=== PATIENT | female | born 1985 | race Caucasian/White ===

== ENCOUNTER 2017-05-10 06:00 | Inpatient (IN) | payer BC, OTHER ==
[2017-05-10] MEDS ORDERED: LIDOCAINE 1% (PF) 10 MG/ML (30 ML SDV) SQ PRN (06:42)
[2017-05-10] MEDS ORDERED: OXYTOCIN 10 UNIT/ML 1 ML VIAL IM PRN (06:42)
[2017-05-10] MEDS ORDERED: METHYLERGONOVINE 0.2 MG/ML 1 ML AMP IM PRN (06:42)
[2017-05-10] MEDS ORDERED: CARBOPROST TROMETHAMINE 250 MCG/ML 1 ML AMP IM PRN (06:42)
[2017-05-10] MEDS ORDERED: TERBUTALINE 1 MG/ML VIAL SQ PRN (06:42)
[2017-05-10] MEDS ORDERED: OXYTOCIN 20 UNITS/1000 ML NS 1,000 ML IV SCH (06:45)
[2017-05-10 06:49] VITALS: BMI 29.2
[2017-05-10] MEDS: LACTATED RINGERS 1,000 ML IV SCH ×3 (07:03→12:46)
[2017-05-10 07:12] LABS: Basophils % (A) 1 %; Eosinophils # (A) 0.2 k/uL (0-0.7); Eosinophils % (A) 2 %; HCT 37.8 % (34.0-46.0); HGB 13.2 gm/dL (11.4-16.0); Luc # (Auto) 0.19; Luc % (Auto) 2; Lymphocytes # (A) 2.4 k/uL (1.0-4.8); Lymphocytes % (A) 28 %; MCH 32.1 pg (25.0-35.0); MCHC 34.9 g/dL (31.0-37.0); MCV 92.1 fL (80.0-100.0); Monocytes # (A) 0.5 k/uL (0-1.0); Monocytes % (A) 6 %; Neutrophils # (A) 5.2 k/uL (1.3-7.7); Neutrophils % (A) 61 %; RBC 4.11 m/uL (3.80-5.40); RDW 13.4 % (11.5-15.5); WBC 8.5 k/uL (3.8-10.6); WBC (Perox) 9.11
--- NOTE | 2017-05-10 07:18 | P.HPOB ---
History of Present Illness H&P Date: 05/10/17 This is a 32-year-old white female 2 para 1001 EDC 05/15/2017 at 39-2/7 weeks' gestation. Patient presents for elective induction for favorable multiparous cervix and increasing maternal discomfort. Fetus is been active throughout the . She denies vaginal bleeding or fluid leakage. Past surgical history is significant for tonsillectomy and adenoidectomy, right breast benign biopsy, EGD, wisdom teeth extracted, and right wrist surgery at age 11. Current medications Tums as needed, vitamins daily. Past medical history is significant for benign breast mass, excised surgically. ALLERGIES include cephalosporins to which reports a rash and seasonal ALLERGIES. Family history is significant for skin cancer in her mother, shingles in her brother, lymphoma in her mother, hypertension and lipidemia, breast cancer in her mother. Reproductive history is significant for 8 lbs. 8 oz. vaginal delivery in 2014. Social history patient is , she is a nonsmoker, she denies alcohol or drug use with . history group B strep cultures are negative. Blood type O positive. Rubella status immune. VDRL testing, urine culture, hepatitis B surface antigen , HIV testing all negative. One-hour Glucola 80. On exam this is a pleasant white female, she is 5 foot 9-1/2 inches, 198 pounds , blood pressure 133/63 on admission, vital signs are stable and she is afebrile. The general physical exam is within normal limits. The chest is clear in all moreira. The extremities reveal no edema. The cervix is 3 cm dilated, anterior, soft, 60-70% effaced, -2 station, vertex presentation. Artificial amniorrhexis reveals clear fluid. heart rate is in the 140s with frequent accelerations, consistent with reactive NST. Uterine contractions are occurring spontaneously approximately every 3 minutes apart of mild intensity. Impression: 39-2/7 weeks intrauterine , here for elective induction, in early spontaneous labor. Plan: Oxytocin per hospital protocol. Close maternal and surveillance. Anticipate normal spontaneous vaginal delivery. Review of Systems Negative except as in HPI. Past Medical History Past Medical History: No Reported History History of Any Multi-Drug Resistant Organisms: None Reported Past Surgical History: Adenoidectomy, Tonsillectomy Additional Past Surgical History / Comment(s): EGD Past Anesthesia/Blood Transfusion Reactions: No Reported Reaction Past Psychological History: No Psychological Hx Reported Smoking Status: Never smoker Past Alcohol Use History: Occasional Past Drug Use History: None Reported - Past Family History Mother Family Medical History: Cancer, Thyroid Disorder Medications and Allergies Home Medications Medication Instructions Recorded Confirmed Type Pnv 117/Iron/Folic/Om3/Dha/Epa 1 tab PO DAILY 02/02/15 05/10/17 History [Duet Dha Balanced (25 mg Iron)] Allergies Allergy/AdvReac Type Severity Reaction Status Date / Time Cephalosporins Allergy Rash/Hives Verified 05/10/17 06:40 Exam - Vital Signs Vital signs: Vital Signs Temp Pulse Resp BP 05/10/17 06:44 98.2 F 88 16 133/63 Intake and Output 05/09/17 05/10/17 05/10/17 22:59 06:59 14:59 Other: Weight 89.811 kg See dictation under HPI. Assessment and Plan Plan: Oxytocin per hospital protocol. Analgesic options have been reviewed with the patient. Continue close maternal and surveillance. Anticipate normal spontaneous vaginal delivery. Time with Patient: Less than 30
[2017-05-10] MEDS ORDERED: fentaNYL (PF) 50 MCG/ML 5 ML AMP ONE (10:52)
[2017-05-10] MEDS ORDERED: BUPIVACAINE (PF) 0.25% 30 ML VIAL ONE (10:52)
[2017-05-10] MEDS ORDERED: SODIUM CHLORIDE 0.9% 100 ML BAG ONE (10:52)
[2017-05-10] MEDS ORDERED: BUPIVACAINE (PF) 0.25% 25 ML, fentaNYL (PF) 200 MCG in SODIUM CHLORIDE 0.9% 71 ML EPIDURAL ONE (11:26)
[2017-05-10] MEDS ORDERED: BENZOCAINE/MENTHOL SPRAY 1 GM/SPRAY AEROSOL TOPICAL PRN (13:46)
[2017-05-10] MEDS ORDERED: ACETAMINOPHEN TAB 325 MG TAB PO PRN (13:46)
[2017-05-10] MEDS ORDERED: LANOLIN CREAM 5 GM TUBE TOPICAL PRN (13:46)
[2017-05-10] MEDS ORDERED: SIMETHICONE 80 MG CHEWABLE PO PRN (13:46)
[2017-05-10] MEDS ORDERED: WITCH HAZEL 1 EACH MED..PAD TOPICAL PRN (13:46)
[2017-05-10] MEDS ORDERED: diphenhydrAMINE ELIXIR 25 MG/10 ML CUP PO PRN (13:46)
[2017-05-10] MEDS ORDERED: diphenhydrAMINE 50 MG/ML 1 ML VIAL IVP PRN ×2 (13:46)
[2017-05-10] MEDS ORDERED: diphenhydrAMINE 50 MG CAP PO PRN (13:46)
[2017-05-10] MEDS ORDERED: ZOLPIDEM 5 MG TAB PO PRN (13:46)
[2017-05-10] MEDS ORDERED: Acetaminophen-Codeine 300-30mg TAB PO PRN (13:46)
[2017-05-10] MEDS ORDERED: diphenhydrAMINE 25 MG CAP PO PRN (13:46)
[2017-05-10] MEDS ORDERED: HYDROCORTISONE 2.5% RECTAL CREAM 30 GM TUBE RECTAL PRN (13:46)
--- NOTE | 2017-05-10 13:46 | P.PROBDLV ---
Vaginal Delivery Note - . Vaginal Delivery Note: This is a 32-year-old white female 2 para 1001 EDC 05/15/2017 at 39-2/7 weeks' gestation. Patient presented for induction with favorable multiparous cervix. is unremarkable. Please see dictated history and physical for details. Patient requested an epidural and this was placed without difficulty. heart tones were reassuring throughout the first and second stages of labor. Toward the end of the first stage variable decelerations were noted, and therefore the patient was checked and noted to be complete. The perineal body was prepped and draped therefore in the usual sterile fashion. Infant's head delivered in the occiput anterior position and he restituted accordingly. There was a tight nuchal cord noted. Upon my attempt to reduce the cord, patient had a strong expulsive effort and the cord broke spontaneously. Infant delivered immediately thereafter, official time of delivery 1305 hrs. Umbilical cord was clamped at the umbilicus. The uterus was massaged. The placenta delivered spontaneously, it was inspected and noted to be intact at 13 007 hours. At this time the perineal body was redraped. Inspection of the cervix, vagina, perineum and periurethral areas revealed no lacerations. Infant weighed 3475 g or 7 lbs. 11 oz. All sponge needle and enhancement counts are correct at the end of the procedure. Patient and her family are allowed to begin the bonding experience in the LDR.
[2017-05-10] MEDS: SENNOSIDES-DOCUSATE SODIUM 1 EACH TAB PO SCH (19:50)
[2017-05-10] MEDS: IBUPROFEN 600 MG TAB PO PRN (19:50)
--- NOTE | 2017-05-11 07:14 | P.DS ---
Providers Date of admission: 05/10/17 06:16 Expected date of discharge: 05/11/17 Attending physician: Susan Zee Primary care physician: Stated None Hospital Course: This is a 32-year-old white female 2 para 1001 EDC 05/15/2017 at 39-2/7 weeks' gestation. Patient presented for induction with favorable multiparous cervix. was unremarkable, group B strep cultures negative, rubella status immune, blood type O positive. Please see my dictated history and physical for details. Patient was admitted, artificial amniorrhexis revealed clear fluid. Oxytocin was started and titrated per protocol. Epidural was placed per her request. She went on to swiftly deliver a liveborn male with scores of 8 and 9 at one and 5 minutes respectively. There was a nuchal cord on the perineal body and an estimated blood loss of 300 mL's. Infant weighed 7 lbs. 11 oz. or 3475 g. Please see my dictated delivery note for details. No perineal lacerations or defects were appreciated. This morning the patient is doing well. She is voiding, ambulating and passing flatus without difficulty. Vital signs are stable and she is afebrile. Fundus is firm and in the midline, symmetric and 18 week size. Extremities are negative for edema. Breast-feeding is going well. Circumcision has been performed. Patient has no problems or complaints. She is being discharged home later today in very good condition. She will follow-up in the office with me in 6 weeks. I have reminded her no intercourse , tampons or douching. She will use [id number] ibuprofen products as needed for pain, I bupropion 200 mg, 3 pills every 6 hours as needed. She will continue taking her vitamin daily. I've asked her to call me with any fevers shakes or chills, foul smelling or copious lochia, with the passage of large blood clots, with any pain not alleviated by [id number] products, or indeed with any concerns. We have briefly reviewed contraceptive options and we will discuss this further in the office in 6 weeks. Patient Condition at Discharge: Good Plan - Discharge Summary New Discharge Prescriptions: No Action Pnv 117/Iron/Folic/Om3/Dha/Epa [Duet Dha Balanced (25 mg Iron)] 1 tab PO DAILY Discharge Medication List Pnv 117/Iron/Folic/Om3/Dha/Epa [Duet Dha Balanced (25 mg Iron)] 1 tab PO DAILY 02/02/15 [History] Follow up Appointment(s)/Referral(s): Susan Zee MD [STAFF PHYSICIAN] - 6 Weeks Discharge Disposition: HOME SELF-CARE
[2017-05-11] MEDS: IBUPROFEN 600 MG TAB PO PRN ×2 (07:59→13:47)
[2017-05-11 08:12] VITALS: BP 121/67; PULSE 77; RESP 18; TEMP 98
[2017-05-11] MEDS: SENNOSIDES-DOCUSATE SODIUM 1 EACH TAB PO SCH (08:14)
== END 2017-05-11 14:24 | disposition home or self-care (01) | DRG 775 ==
LOC: 4FBP 06:16
PROVIDERS: ADMIT Obstetrics & Gynecology; ATTEND Obstetrics & Gynecology
PROC: 10E0XZZ Delivery of Products of Conception, External Approach (ICD-10-PCS; principal; 2017-05-10)
PROC: 3E033VJ Introduction of Other Hormone into Peripheral Vein, Percutaneous Approach (ICD-10-PCS; 2017-05-10)
PROC: 10907ZC Drainage of Amniotic Fluid, Therapeutic from Products of Conception, Via Natural or Artificial Opening (ICD-10-PCS; 2017-05-10)
PROC: 00HU33Z Insertion of Infusion Device into Spinal Canal, Percutaneous Approach (ICD-10-PCS; 2017-05-10)
PROC: 3E0R3CZ (ICD-10-PCS; 2017-05-10)
DX: O69.1XX0 Labor and delivery complicated by cord around neck, with compression, not applicable or unspecified (principal); O76 Abnormality in fetal heart rate and rhythm complicating labor and delivery; Z3A.39 39 weeks gestation of pregnancy; Z37.0 Single live birth; Z88.1 Allergy status to other antibiotic agents; Z79.899 Other long term (current) drug therapy
CPT/HCPCS: 85025; 88307

== ENCOUNTER → 2019-07-23 | Outpatient (CLI) | payer BC | END | disposition home or self-care (01) | LOC: LABWHC1 10:09 | PROVIDERS: ATTEND Obstetrics & Gynecology | DX: O20.0 Threatened abortion (principal) | CPT/HCPCS: 36415; 84702; 86850; 86900; 86901 ==

== ENCOUNTER → 2019-07-25 | Outpatient (CLI) | payer BC | END | disposition home or self-care (01) | LOC: LABWHC1 09:38 | PROVIDERS: ATTEND Obstetrics & Gynecology | DX: O20.0 Threatened abortion (principal) | CPT/HCPCS: 36415; 84702 ==

== ENCOUNTER 2020-03-13 03:05 | Inpatient (IN) | payer BC ==
[2020-03-13] MEDS ORDERED: TERBUTALINE 1 MG/ML VIAL SQ PRN (03:59)
[2020-03-13] MEDS ORDERED: LIDOCAINE 0.5% (PF) 5 MG/ML (50 ML SDV) SQ PRN (03:59)
[2020-03-13] MEDS ORDERED: METHYLERGONOVINE 0.2 MG/ML 1 ML AMP IM PRN (03:59)
[2020-03-13] MEDS ORDERED: CARBOPROST TROMETHAMINE 250 MCG/ML 1 ML AMP IM PRN (03:59)
[2020-03-13] MEDS ORDERED: OXYTOCIN 10 UNIT/ML 1 ML VIAL IM PRN (03:59)
[2020-03-13] MEDS ORDERED: OXYTOCIN 30 UNITS/500 ML NS 30 UNIT in SALINE 1 500ML.BAG IV SCH (04:00)
[2020-03-13 04:15] VITALS: RESP 16
[2020-03-13 04:24] LABS: Basophils % (A) 1 %; Eosinophils # (A) 0.2 k/uL (0-0.7); Eosinophils % (A) 2 %; HCT 35.9 % (34.0-46.0); HGB 12.3 gm/dL (11.4-16.0); Lymphocytes # (A) 2.3 k/uL (1.0-4.8); Lymphocytes % (A) 32 %; MCH 31.4 pg (25.0-35.0); MCHC 34.4 g/dL (31.0-37.0); MCV 91.3 fL (80.0-100.0); Mean Platelet Volume 9.8; Monocytes # (A) 0.5 k/uL (0-1.0); Monocytes % (A) 7 %; Neutrophils % (A) 57 %; Platelet Count 181 k/uL (150-450); RBC 3.93 m/uL (3.80-5.40); RDW 12.9 % (11.5-15.5)
[2020-03-13] MEDS: LACTATED RINGERS 1,000 ML IV SCH ×2 (04:25→08:01)
[2020-03-13] MEDS ORDERED: ROPIVACAINE 5MG/ML 20ML VIAL ONE (07:29)
[2020-03-13] MEDS ORDERED: fentaNYL (PF) 50 MCG/ML 5 ML AMP ONE (07:29)
[2020-03-13] MEDS ORDERED: SODIUM CHLORIDE 0.9% 100 ML BAG ONE (07:29)
[2020-03-13] MEDS ORDERED: diphenhydrAMINE 25 MG CAP PO PRN (11:51)
[2020-03-13] MEDS ORDERED: diphenhydrAMINE 50 MG/ML 1 ML VIAL IVP PRN ×2 (11:51)
[2020-03-13] MEDS ORDERED: HYDROcodone/APAP 5-325MG 1 EACH TAB PO PRN (11:51)
[2020-03-13] MEDS ORDERED: LANOLIN CREAM 5 GM TUBE TOPICAL PRN (11:51)
[2020-03-13] MEDS ORDERED: HYDROcodone/APAP 7.5-325MG 1 EACH TAB PO PRN (11:51)
[2020-03-13] MEDS ORDERED: ACETAMINOPHEN TAB 325 MG TAB PO PRN (11:51)
[2020-03-13] MEDS ORDERED: HYDROCORTISONE 2.5% RECTAL CREAM 30 GM TUBE RECTAL PRN (11:51)
[2020-03-13] MEDS ORDERED: diphenhydrAMINE 50 MG CAP PO PRN (11:51)
[2020-03-13] MEDS ORDERED: SIMETHICONE 80 MG CHEWABLE PO PRN (11:51)
[2020-03-13] MEDS ORDERED: ZOLPIDEM 5 MG TAB PO PRN (11:51)
[2020-03-13] MEDS ORDERED: BENZOCAINE/MENTHOL SPRAY 1 GM/SPRAY AEROSOL TOPICAL PRN (11:51)
--- NOTE | 2020-03-13 11:57 | P.HPOB ---
History of Present Illness H&P Date: 03/13/20 Chief Complaint: 38-6/7 weeks, spontaneous rupture of membranes, labor The patient is a 35-year-old 3 para 2001 admitted at 38-6/7 weeks as established by last menstrual period and confirmed by second trimester ultrasound. She is admitted with documented spontaneous rupture of membranes in early labor with all signs reassuring. Her has been uncomplicated and group B strep status is negative. She was noted at her anatomy ultrasound with a finding of bilateral full renal pelves. This was to be followed up with pediatrics. Obstetrical history: 3 para 2001 with 2 term vaginal deliveries without complications. Current statistics are listed in history present illness. EDC of 03/21/2020 was established by last menstrual period and confirmed by second trimester ultrasound. Laboratory workup done traits of bloo d type of O+ with a negative antibody screen. Rubella status is immune. The remainder of the laboratory workup was within normal limits. One hour Glucola was normal and group B strep status is negative. Gynecologic history: Unremarkable with no history of any infections to include STDs. Review of Systems Review of systems is confined to history of present illness. Past Medical History Past Medical History: No Reported History History of Any Multi-Drug Resistant Organisms: None Reported Past Surgical History: Adenoidectomy, Tonsillectomy Additional Past Surgical History / Comment(s): EGD Past Anesthesia/Blood Transfusion Reactions: No Reported Reaction Past Psychological History: No Psychological Hx Reported Smoking Status: Never smoker Past Alcohol Use History: Occasional Past Drug Use History: None Reported - Past Family History Mother Family Medical History: Cancer, Thyroid Disorder Medications and Allergies Home Medications Medication Instructions Recorded Confirmed Type Pnv 117/Iron/Folic/Om3/Dha/Epa 1 tab PO DAILY 02/02/15 03/13/20 History [Duet Dha Balanced (25 mg Iron)] Allergies Allergy/AdvReac Type Severity Reaction Status Date / Time Cephalosporins Allergy Rash/Hives Verified 05/10/17 06:40 Exam Vital Signs Temp Pulse Resp BP Pulse Ox 03/13/20 03:59 97.6 F 72 16 126/77 03/13/20 03:45 96.3 F L 78 16 127/77 97 Intake and Output 03/12/20 03/13/20 03/13/20 22:59 06:59 14:59 Other: # Voids 4 Weight 93.894 kg In general, this is a well-developed, well-nourished white female in no acute distress. Her heart has a regular rhythm and rate without murmur. Her lungs are clear to auscultation. Her abdomen is gravid, nondistended, has normal active bowel sounds, soft, nontender, and without any palpable masses aside from uterine fundus. Her extremities are without any cyanosis, clubbing, or edema and are nontender to palpation bilaterally. Digital cervical examination at the time of my arrival demonstrated her sugars to 3 cm dilated, 50% effaced, the vertex in presentation at -1 station. Spontaneous rupture of membranes has been documented. Results Result Diagrams: 03/13/20 04:00 Assessment and Plan (1) Spontaneous rupture of amniotic membranes Current Visit: Yes Status: Acute Code(s): [id number] - SNOMED Code(s): 936362298 (2) Active labor at term Current Visit: Yes Status: Acute Code(s): [id number] - SNOMED Code(s): 358 88307 Plan: The patient has been admitted for active management of labor. As contractions were still fairly spaced out despite rupture of membranes, Pitocin augmentation was added early this morning. She has requested and received an epidural catheter for analgesia. She'll have close maternal surveillance and expectant management will be practiced.
--- NOTE | 2020-03-13 11:59 | P.PROBDLV ---
Vaginal Delivery Note - . Vaginal Delivery Note: The patient is a 35-year-old 3 para 2001 admitted at 38-6/7 weeks by good dating parameters. She is admitted with documented spontaneous rupture of members in early labor with all signs reassuring. Her has been entirely uncomplicated though the fetus was found to have bilateral full renal pelves consistent with a finding on a male fetus. This was to be followed up after delivery. On labor and delivery, she had Pitocin augmentation started and underwent an epidural catheter placement for analgesia. She made rapid progress through the active phase of labor to complete and then pushed over the course of 1 contraction to a normal spontaneous vaginal delivery of a viable 8 lbs. 5 oz. baby boy with Apgars of 8 at 1 minute and 9 at 5 minutes delivered in the right occiput anterior position. The placenta was delivered spontaneously, intact, a nd grossly normal with a grossly normal, centrally inserted three-vessel cord. There were no lacerations of the perineum, vagina, or cervix. Estimated blood loss for the case was approximately 150 mL. There were no complications. All sponge, instrument, and needle counts were correct. Both mother and are resting comfortably in recovery.
[2020-03-13] MEDS ORDERED: OXYTOCIN 20 UNITS/1000 ML NS 1,000 ML IV SCH (12:00)
[2020-03-13] MEDS ORDERED: ONDANSETRON 4 MG/2 ML VIAL IVP STA (12:15)
[2020-03-13] MEDS: IBUPROFEN 600 MG TAB PO PRN (17:43)
[2020-03-13] MEDS: SENNOSIDES-DOCUSATE SODIUM 1 EACH TAB PO SCH (19:41)
[2020-03-14] MEDS: IBUPROFEN 600 MG TAB PO PRN ×3 (00:25→15:18)
[2020-03-14] MEDS: SENNOSIDES-DOCUSATE SODIUM 1 EACH TAB PO SCH (09:16)
--- NOTE | 2020-03-14 10:44 | P.DS ---
Providers Date of admission: 03/13/20 03:28 Expected date of discharge: 03/14/20 Attending physician: Susan Zee Primary care physician: Stated None - Discharge Diagnosis(es) (1) Spontaneous rupture of amniotic membranes Current Visit: Yes Status: Acute (2) Active labor at term Current Visit: Yes Status: Acute (3) Normal spontaneous vaginal delivery Current Visit: Yes Status: Acute Hospital Course: The patient is a 35-year-old 3 para 2 scissors or 2 admitted at 38-6/7 weeks by good dating parameters. She is admitted with spontaneous rupture of membranes in early labor with all signs reassuring. She has had an uncomplicated and group B strep status is negative. On labor and delivery, she had Pitocin augmentation started and progressed quickly through the active phase of labor to complete. She then pushed rapidly to a normal spontaneous vaginal delivery of a viable 8 lbs. 5 oz. baby boy with Apgars of 8 at 1 minute and 9 at 5 units. Her course was unremarkable with vital signs being stable and her temperature was afebrile throughout. She was deemed stable for discharge on day #1 and was discharged home to follow-up in the office in 6 weeks' time routinely. Discharge instructions included calling for any significantly increased bleeding or foul-smelling lochia, significantly increased fever abdominal pain, perineal complaints, breast complaints, or anything else that concerned her. She was additionally instructed to have nothing in vagina for at least 6 weeks time to include intercourse. She understood her instructions and agrees to follow up as noted above. Discharge medications included continued vitamins as she has opted to breast-feed. She was otherwise to use [id number] analgesic pain medications as needed. Maternal blood type is O+ and rubella status is immune. Procedures: #1. Epidural analgesia #2. Pitocin augmentation #3. Normal spontaneous vaginal delivery Patient Condition at Discharge: Good Plan - Discharge Summary New Discharge Prescriptions: No Action Pnv 117/Iron/Folic/Om3/Dha/Epa [Duet Dha Balanced (25 mg Iron)] 1 tab PO DAILY Discharge Medication List Pnv 117/Iron/Folic/Om3/Dha/Epa [Duet Dha Balanced (25 mg Iron)] 1 tab PO DAILY 02/02/15 [History] Follow up Appointment(s)/Referral(s): Susan Zee MD [STAFF PHYSICIAN] - 6 Weeks Discharge Disposition: HOME SELF-CARE
[2020-03-14 15:58] VITALS: BP 136/68; PULSE 65; TEMP 97.8
== END 2020-03-14 20:00 | disposition home or self-care (01) | DRG 807 ==
LOC: FBPOP 03:05 → 4FBP 03:28
PROVIDERS: ADMIT Obstetrics & Gynecology; ATTEND Obstetrics & Gynecology
PROC: 10E0XZZ Delivery of Products of Conception, External Approach (ICD-10-PCS; principal; 2020-03-13)
PROC: 3E0R3BZ Introduction of Anesthetic Agent into Spinal Canal, Percutaneous Approach (ICD-10-PCS; principal; 2020-03-13)
PROC: 00HU33Z Insertion of Infusion Device into Spinal Canal, Percutaneous Approach (ICD-10-PCS; principal; 2020-03-13)
DX: O80 Encounter for full-term uncomplicated delivery (principal); Z37.0 Single live birth; Z3A.38 38 weeks gestation of pregnancy; Z80.9 Family history of malignant neoplasm, unspecified; Z83.49 Family history of other endocrine, nutritional and metabolic diseases; Z88.1 Allergy status to other antibiotic agents
CPT/HCPCS: 59025; 84112; 85025; 86850; 86900; 86901; 99213

== ENCOUNTER 2023-12-12 08:16 | Emergency (ER) | payer BC ==
[2023-12-12 09:06] VITALS: TEMP 98.8
[2023-12-12] MEDS: KETOROLAC 15 MG/ML 1 ML VIAL IVP STA (09:17)
[2023-12-12] MEDS: SODIUM CHLORIDE 0.9% 1,000 ML IV ONE (09:17)
[2023-12-12] MEDS: diphenhydrAMINE 50 MG/ML 1 ML VIAL IVP STA (09:18)
[2023-12-12] MEDS: methylPREDNISolone SOD SUCCI 125 MG/2 ML VIAL IV STA (09:19)
--- NOTE | 2023-12-12 09:25 | ED ---
General Adult HPI - General Chief complaint: Allergic Reaction Stated complaint: allergic reaction,joint pain Time Seen by Provider: 12/12/23 08:36 Source: patient, RN notes reviewed Mode of arrival: ambulatory Limitations: no limitations - History of Present Illness Initial comments: 38-year-old female presents emergency department chief complaint of swelling, joint pain, recent illness. Patient states that she started having congestion, was not feeling well was seen in urgent care and was diagnosed with throat infection, ear infection and sinus issues and was placed on Augmentin and steroids. She states soon she finished the steroid she started having swelling of her hands, joint space and started developing worsening discomfort. Patient was seen again in urgent care was given Toradol and was told that they could do a steroid again but they were not sure what was going on. Patient states seemed to worsen this morning in which she presented to the emergency department. Patient denies any difficulty swallowing or breathing she has no history of arthritic or autoimmune issues. - Related Data Previous Rx's Medication Instructions Recorded predniSONE 50 mg PO DAILY #4 tab 12/12/23 Allergies Allergy/AdvReac Type Severity Reaction Status Date / Time Cephalosporins Allergy Rash/Hives Verified 12/12/23 09:05 Review of Systems ROS Statement: Those systems with pertinent positive or pertinent negative responses have been documented in the HPI. ROS Other: All systems not noted in ROS Statement are negative. Past Medical History Past Medical History: No Reported History History of Any Multi-Drug Resistant Organisms: None Reported Past Surgical History: Adenoidectomy, Tonsillectomy Additional Past Surgical History / Comment(s): EGD Past Anesthesia/Blood Transfusion Reactions: No Reported Reaction Past Psychological History: No Psychological Hx Reported Smoking Status: Never smoker Past Alcohol Use History: Occasional Past Drug Use History: None Reported - Past Family History Mother Family Medical History: Cancer, Thyroid Disorder General Exam Limitations: no limitations General appearance: alert, in no apparent distress Head exam: Present: atraumatic, normocephalic, normal inspection Eye exam: Present: normal appearance, PERRL, EOMI, periorbital swelling. A bsent: scleral icterus, conjunctival injection ENT exam: Present: normal exam, normal oropharynx, mucous membranes moist Neck exam: Present: normal inspection, full ROM. Absent: tenderness, meningismus, lymphadenopathy Respiratory exam: Present: normal lung sounds bilaterally. Absent: respiratory distress, wheezes, rales, rhonchi, stridor Cardiovascular Exam: Present: regular rate, normal rhythm, normal heart sounds. Absent: systolic murmur, diastolic murmur, rubs, gallop, clicks GI/Abdominal exam: Present: soft, normal bowel sounds. Absent: distended, tenderness, guarding, rebound, rigid Extremities exam: Absent: pedal edema Neurological exam: Present: alert Skin exam: Present: warm, dry, intact, normal color. Absent: rash Course Vital Signs 12/12/23 12/12/23 12/12/23 08:25 09:30 09:43 Temperature 98.8 F Pulse Rate 98 89 Respiratory 18 18 18 Rate Blood Pressure 147/81 O2 Sat by Pulse 99 Oximetry 12/12/23 11:35 Temperature Pulse Rate 77 Respiratory 12 Rate Blood Pressure 122/85 O2 Sat by Pulse Oximetry Medical Decision Making - Medical Decision Making Was pt. sent in by a medical professional or institution (, PA, MACHINE DESIGN CHECKER, urgent care, hospital, or assisted...) When possible be specific @ -No Did you speak to anyone other than the patient for history (EMS, parent, family, police, friend...)? What history was obtained from this source @ -No Did you review nursing and triage notes (agree or disagree)? Why? @ -I reviewed and agree with nursing and triage notes Were old charts reviewed (outside hosp., previous admission, EMS record, old EKG, old radiological studies, urgent care reports/EKG's, assisted records)? Report findings @ -No old charts were reviewed Differential Diagnosis (chest pain, altered mental status, abdominal pain women, abdominal pain men, vaginal bleeding, weakness, fever, dyspnea, syncope, headache, dizziness, GI bleed, back pain, seizure, CVA, palpatations, mental health, musculoskeletal)? @ -[Allergic reaction, drug reaction COVID 19, RSV, influenza, pneumonia, acute bronchitis, URI, this list is not all inclusive EKG interpreted by me (3pts min.). @ -None X-rays interpreted by me (1pt min.). @ -None done CT interpreted by me (1pt min.). @ -None done U/S interpreted by me (1pt. min.). @ -None done What testing was considered but not performed or refused? (CT, X-rays, U/S, labs)? Why? @ -None What meds were considered but not given or refused? Why? @ -None Did you discuss the management of the patient with other professionals (professionals i.e. , PA, MACHINE DESIGN CHECKER, lab, RT, psych nurse, social insurance administrator, paraprofessional education assistant, teacher, chief science officer, transplant case manager)? Give summary @ -No Was smoking cessation discussed for >3mins.? @ -No Was critical care preformed (if so, how long)? @ -No Were there social determinants of health that impacted care today? How? (Homelessness, low income, unemployed, alcoholism, drug addiction, transportation, low edu. Level, literacy, decrease access to med. care, [facility], rehab)? @ -No Was there de-escalation of care discussed even if they declined (Discuss DNR or withdrawal of care, Hospice)? DNR status @ -No What co-morbidities impacted this encounter? (DM, HTN, Smoking, COPD, CAD, Cancer, CVA, ARF, Chemo, Hep., AIDS, mental health diagnosis, sleep apnea, morbid obesity)? @ -None Was patient admitted / discharged? Hospital course, mention meds given and route, prescriptions, significant lab abnormalities, going to OR and other pertinent info. @ -[This charge patient is improved after Solu-Medrol, Benadryl laboratory studies unremarkable. I do feel this is related to possible drug mediated reaction from viral illness. Patient discharged in stable condition will discontinue Augmentin Undiagnosed new problem with uncertain prognosis? @ -No Drug Therapy requiring intensive monitoring for toxicity (Heparin, Nitro, Insulin, Cardizem)? @ -No Were any procedures done? @ -No Diagnosis/symptom? @ -Viral illness, drug reaction Acute, or Chronic, or Acute on Chronic? @ -Acute] Uncomplicated (without systemic symptoms) or Complicated (systemic symptoms)? @ -Complicated Side effects of treatment? @ -No Exacerbation, Progression, or Severe Exacerbation? @ -No Poses a threat to life or bodily function? How? (Chest pain, [place], [place], pneumonia, PE, COPD, DKA, ARF, appy, cholecystitis, CVA, Diverticulitis, Homicidal, Suicidal, threat to staff... and all critical care pts) @ -No - Lab Data Result diagrams: 12/12/23 09:21 04/17/24 09:21 Lab Results 12/12/23 12/12/23 12/12/23 Range/Units 09:21 09:21 09:21 WBC 4.7 (3.8-10.6) k/uL RBC 4.63 (3.80-5.40) m/uL Hgb 11.3 L (11.4-16.0) gm/dL Hct 34.8 (34.0-46.0) % MCV 75.1 L (80.0-100.0) fL MCH 24.4 L (25.0-35.0) pg MCHC 32.6 (31.0-37.0) g/dL RDW 16.6 H (11.5-15.5) % Plt Count 236 (150-450) k/uL MPV 8.9 Neutrophils % (Manual) 75 % Lymphocytes % (Manual) 18 % Monocytes % (Manual) 3 % Eosinophils % (Manual) 4 % Neutrophils # (Manual) 3.53 (1.3-7.7) k/uL Lymphocytes # (Manual) 0.85 L (1.0-4.8) k/uL Monocytes # (Manual) 0.14 (0-1.0) k/uL Eosinophils # (Manual) 0.19 (0-0.7) k/uL Nucleated RBCs 0 (0-0) /100 WBC Manual Slide Review Performed Anisocytosis Slight Microcytosis Slight Sodium 137 (137-145) mmol/L Potassium 3.9 (3.5-5.1) mmol/L Chloride 106 (98-107) mmol/L Carbon Dioxide 26 (22-30) mmol/L Anion Gap 5 mmol/L BUN 13 (7-17) mg/dL Creatinine 0.70 (0.52-1.04) mg/dL Est GFR (CKD-EPI)AfAm >90 (>60 ml/min/1.73 sqM) Est GFR (CKD-EPI)NonAf >90 (>60 ml/min/1.73 sqM) Glucose 108 H (74-99) mg/dL Calcium 8.9 (8.4-10.2) mg/dL Total Bilirubin 0.7 (0.2-1.3) mg/dL AST 18 (14-36) U/L ALT 14 (4-34) U/L Alkaline Phosphatase 43 (38-126) U/L C-Reactive Protein 1.7 H (<1.0) mg/dL Total Protein 6.0 L (6.3-8.2) g/dL Albumin 3.6 (3.5-5.0) g/dL Heterophile Antibody Negative (Negative) Influenza Type A (PCR) (Not Detectd) Influenza Type B (PCR) (Not Detectd) RSV (PCR) (Not Detectd) SARS-CoV-2 (PCR) (Not Detectd) Group A Strep (PCR) (Not Detectd) 12/12/23 12/12/23 Range/Units 09:21 09:21 WBC (3.8-10.6) k/uL RBC (3.80-5.40) m/uL Hgb (11.4-16.0) gm/dL Hct (34.0-46.0) % MCV (80.0-100.0) fL MCH (25.0-35.0) pg MCHC (31.0-37.0) g/dL RDW (11.5-15.5) % Plt Count (150-450) k/uL MPV Neutrophils % (Manual) % Lymphocytes % (Manual) % Monocytes % (Manual) % Eosinophils % (Manual) % Neutrophils # (Manual) (1.3-7.7) k/uL Lymphocytes # (Manual) (1.0-4.8) k/uL Monocytes # (Manual) (0-1.0) k/uL Eosinophils # (Manual) (0-0.7) k/uL Nucleated RBCs (0-0) /100 WBC Manual Slide Review Anisocytosis Microcytosis Sodium (137-145) mmol/L Potassium (3.5-5.1) mmol/L Chloride (98-107) mmol/L Carbon Dioxide (22-30) mmol/L Anion Gap mmol/L BUN (7-17) mg/dL Creatinine (0.52-1.04) mg/dL Est GFR (CKD-EPI)AfAm (>60 ml/min/1.73 sqM) Est GFR (CKD-EPI)NonAf (>60 ml/min/1.73 sqM) Glucose (74-99) mg/dL Calcium (8.4-10.2) mg/dL Total Bilirubin (0.2-1.3) mg/dL AST (14-36) U/L ALT (4-34) U/L Alkaline Phosphatase (38-126) U/L C-Reactive Protein (<1.0) mg/dL Total Protein (6.3-8.2) g/dL Albumin (3.5-5.0) g/dL Heterophile Antibody (Negative) Influenza Type A (PCR) Not Detected (Not Detectd) Influenza Type B (PCR) Not Detected (Not Detectd) RSV (PCR) Not Detected (Not Detectd) SARS-CoV-2 (PCR) Not Detected (Not Detectd) Group A Strep (PCR) NOT DETECTED (Not Detectd) Disposition Clinical Impression: Drug-induced hypersensitivity reaction, Viral illness Disposition: HOME SELF-CARE Condition: Stable Additional Instructions: Please return to the Emergency Department if symptoms worsen or any other concerns. Prescriptions: predniSONE 50 mg PO DAILY #4 tab Is patient prescribed a controlled substance at d/c from ED?: No Referrals: None,Stated [Primary Care Provider] - 1-2 days Time of Disposition: 11:25
[2023-12-12 10:01] LABS: ALT 14 U/L (4-34); AST 18 U/L (14-36); African American GFR (CKD) >90 (>60 ml/min/1.73 sqM); Albumin 3.6 g/dL (3.5-5.0); Alkaline Phosphatase 43 U/L (38-126); Anion Gap 5 mmol/L; Blood Urea Nitrogen 13 mg/dL (7-17); Calcium 8.9 mg/dL (8.4-10.2); Carbon Dioxide 26 mmol/L (22-30); Chloride 106 mmol/L (98-107); Glucose 108 mg/dL (74-99); Non-African American GFR(CKD) >90 (>60 ml/min/1.73 sqM); Potassium 3.9 mmol/L (3.5-5.1); Sodium 137 mmol/L (137-145); Total Bilirubin 0.7 mg/dL (0.2-1.3)
[2023-12-12 10:14] LABS: Anisocytosis Slight; HCT 34.8 % (34.0-46.0); HGB 11.3 gm/dL (11.4-16.0); MCH 24.4 pg (25.0-35.0); MCHC 32.6 g/dL (31.0-37.0); MCV 75.1 fL (80.0-100.0); Mean Platelet Volume 8.9; Microcytosis Slight; Platelet Count 236 k/uL (150-450); RBC 4.63 m/uL (3.80-5.40); RDW 16.6 % (11.5-15.5); WBC 4.7 k/uL (3.8-10.6)
[2023-12-12 10:37] LABS: Eosinophils # (M) 0.19 k/uL (0-0.7); Lymphocytes # (M) 0.85 k/uL (1.0-4.8); Monocytes # (M) 0.14 k/uL (0-1.0); Neutrophils # (M) 3.53 k/uL (1.3-7.7); Neutrophils % (M) 75 %; Nucleated Red Blood Cells 0 /100 WBC (0-0); Total Cells Counted 100
[2023-12-12 11:01] LABS: C Reactive Protein 1.7 mg/dL (<1.0)
[2023-12-12 12:00] VITALS: BP 122/85; PULSE 77; RESP 12
== END 2023-12-12 11:37 | disposition home or self-care (01) ==
LOC: EC 08:16
DX: B34.9 Viral infection, unspecified (principal); T38.0X5A Adverse effect of glucocorticoids and synthetic analogues, initial encounter; Z88.1 Allergy status to other antibiotic agents; Z11.52 Encounter for screening for COVID-19
CPT/HCPCS: 36415; 87651; 80053; 85025; 86140; 86308; 87636; 99283; 96374; 96375 ×2; 96361; J1200; J1885; J2919